=== PATIENT | female | born 1975 | race Hispanic/Latino ===

== ENCOUNTER 2021-04-22 15:51 | Outpatient (CLI) | payer OTHER, SELFPAY ==
--- NOTE | ~2021-04-22 | MM_ITS ---
EXAMINATION: MM screening avila BI w christianne HISTORY: Screening mammogram TECHNIQUE: Craniocaudal and mediolateral oblique 3-D tomosynthesis images were obtained and synthetic 2-D images were generated. CAD analysis was submitted and interpreted. COMPARISON: No prior mammogram is available for comparison at this institution. BREAST PARENCHYMAL COMPOSITION: The breasts are heterogeneously dense, which may obscure small masses . FINDINGS: Bilateral breast masses are suggested. Question of architectural distortion of the right. B ilateral diagnostic mammography and bilateral breast ultrasound examination are recommended. IMPRESSION: 1. Bilateral breast masses and question of architectural distortion on the right 2. Bilateral diagnostic mammography and bilateral breast ultrasound examination are recommended. BI-RADS Category 0: Incomplete: Needs additional imaging evaluation. Reviewed, dictated and finalized at location A. IMPRESSION: 1. Bilateral breast masses and question of architectural distortion on the righ t 2. Bilateral diagnostic mammography and bilateral breast ultrasound examination are recommended. BI-RADS Category 0: Incomplete: Needs additional imaging evaluation.
== END 2021-04-22 15:52 | disposition home or self-care (01) ==
LOC: ANHIMG 15:53
PROVIDERS: PCP Obstetrics & Gynecology; Visit Provider Obstetrics & Gynecology
DX: Z12.31 Encounter for screening mammogram for malignant neoplasm of breast (principal); R92.8 Other abnormal and inconclusive findings on diagnostic imaging of breast
CPT/HCPCS: 77063; 77067

== ENCOUNTER 2023-12-10 11:21 | Emergency (ER) | payer OTHER, SELFPAY ==
--- NOTE | 2023-12-10 11:28 | ED.GENADULT ---
HPI - General Adult General Chief complaint: Unspecified Stated complaint: Burning/Numbness Hands/Arms/Feet Time Seen by Provider: 12/10/23 11:37 History of Present Illness HPI narrative: 48-year-old female presents to [facility] for complaint of bilateral hand numbness and tingling as well as bilateral numbness and tingling to feet for the past 3 months. Patient endorses that she has not seen her primary care in over 1.5 years. Patient denies chest pain, shortness of breath. Related Data Home Medications Medication Instructions Recorded Confirmed No Home Medications 12/10/23 12/10/23 Allergies Allergy/AdvReac Type Severity Reaction Status Date / Time No Known Allergies Allergy Verified 12/10/23 11:38 [facility] Family History Family History (Updated 09/02/12 @ 08:09 by DOCTOR UNKNOWN) Other Asthma Family history of migraine headaches Social History Social History Smoking status: Never smoker Second hand tobacco smoke exposure: No Alcohol intake: never Course Course Level of Care: Express Care Visit Vital Signs Vital signs: Vital Signs Temperature 36.9 C 12/10/23 11:30 Pulse Rate 91 12/10/23 11:30 Respiratory Rate 18 12/10/23 11:30 Blood Pressure 121/96 H 12/10/23 11:30 Pulse Oximetry 100 12/10/23 11:30 Oxygen Delivery Room Air 12/10/23 11:30 Temperature 36.9 C 12/10/23 11:30 Pulse Rate 91 12/10/23 11:30 Respiratory Rate 18 12/10/23 11:30 Blood Pressure 121/96 H 12/10/23 11:30 Pulse Oximetry 100 12/10/23 11:30 Oxygen Delivery Room Air 12/10/23 11:30 Medical Decision Making [facility] Narrative Medical decision making narrative: 48-year-old female presents to [facility] for complaint of bilateral hand numbness and tingling as well as bilateral numbness and tingling to feet for the past 3 months. Patient endorses that she has not seen her primary care in over 1.5 years. Patient denies chest pain, shortness of breath Exam unremarkable. No edema or discoloration to extremities noted. patient advised it is important for her to schedule with a primary care provider. Patient given list of primary care provider resources in the area. patient verbalized understanding Patient is sitting comfortably in exam room nontoxic in appearance. Patient appropriate for outpatient treatment and follow-up. Discharge instructions reviewed with patient, as well as provided in writing per nursing staff. The instructions also include specific and strict return/GO TO THE ER as well as f/u information. All questions have been answered, and the patient deny any further questions with discharge and discharge plan. Some parts of this dictation were generated by voice recognition software and may contain typographical and/or grammatical inaccuracies. Differential Diagnosis Differential Diagnosis: hand pain, foot pain, electrolyte deficiency, Raynaud syndrome Vital Signs Vital Signs: Vital Signs Temperature 36.9 C 12/10/23 11:30 Pulse Rate 91 12/10/23 11:30 Respiratory Rate 18 12/10/23 11:30 Blood Pressure 121/96 H 12/10/23 11:30 Pulse Oximetry 100 12/10/23 11:30 Oxygen Delivery Room Air 12/10/23 11:30 Temperature 36.9 C 12/10/23 11:30 Pulse Rate 91 12/10/23 11:30 Respiratory Rate 18 12/10/23 11:30 Blood Pressure 121/96 H 12/10/23 11:30 Pulse Oximetry 100 12/10/23 11:30 Oxygen Delivery Room Air 12/10/23 11:30 Discharge Plan Discharge Clinical Impression: Hand and foot pain Qualifiers: Laterality: unspecified laterality Qualified Code(s): M79.643 - Pain in unspecified hand Patient Disposition: Home, Self-Care Condition: Stable Instructions: Low-Sodium Diet (ED) Patient Language: Swiss Prescriptions: No Action No Home Medications Follow-up/Referrals: PHYSICIAN,PARTS INTERPRETER [Primary Care Provider] - Stand Alone Forms: Work/School Release IP Time of Disposition: 11:51
[2023-12-10 11:30] VITALS: BP 121/96; PULSE 91; RESP 18; TEMP 36.9; O2SAT 100
== END 2023-12-10 11:57 | disposition home or self-care (01) ==
PROVIDERS: Emergency Provider Nurse Practitioner Family
DX: M79.642 Pain in left hand (principal); M79.641 Pain in right hand; M79.672 Pain in left foot; M79.671 Pain in right foot
CPT/HCPCS: 99212; G0463

== ENCOUNTER 2024-12-05 10:29 | Emergency (ER) | payer OTHER, SELFPAY ==
[2024-12-05 10:33] VITALS: BP 146/76; PULSE 92; RESP 20; TEMP 36.5; O2SAT 100
[2024-12-05 11:26] VITALS: BP 139/89; PULSE 88; RESP 15; O2SAT 100
--- NOTE | 2024-12-05 11:54 | ED.SKABFB ---
HPI - Skin/Abscess/Foreign Bdy General Chief complaint: Skin/Abscess/Foreign Body Stated complaint: URI, rash Time Seen by Provider: 12/05/24 11:53 History of Present Illness HPI narrative: Pt presents with vescicular rash to back of neck and face for 5 days. Pt states it is not painful and denies any allergic exposure ans lesions do not itch. Pt denies visual symptoms. Related Data Home Medications ?Medication ?Instructions ?Recorded ?Confirmed ?Last Taken ?Type No Home Medications 12/10/23 12/10/23 Unknown History Allergies Allergy/AdvReac Type Severity Reaction Status Date / Time No Known Allergies Allergy Verified 12/05/24 11:19 Review of Systems Review of Systems: All systems reviewed & are unremarkable except as noted in HPI and below PMFSH Family History Family History (Updated 09/02/12 @ 08:09 by DOCTOR UNKNOWN) Other Asthma Family history of migraine headaches Social History Social History Smoking status: Never smoker Second hand tobacco smoke exposure: No Alcohol intake: never Exam Const: General: healthy appearing and no acute distress Nutritional Appearance: well nourished Orientation/consciousness: patient oriented x3 Limitations: no limitations Eyes: Conjunctivae: conjunctivae normal Pupils: Equal, round and reactive pupils present EOM: EOMs intact bilaterally Direct Ophthalmoscopy: no photophobia Other: alcaine applied and fluoresceine applied to left eye. Viewed under wood's lamp, no dendridick lesion or FB noted or area of increased uptake. Neck: Neck: no lymphadenopathy Resp: Effort & Inspection: normal respiratory effort Auscultation: clear to auscultation bilaterally Cardio: Rate: regular rate Rhythm: regular rhythm GI: Auscultation: normal bowel sounds Back/Spine/Pelvis: Back: no CVA tenderness Skin: Other: erythematous vescicular lesions to right neck right lower face and left eyebrow Neuro: General: patient oriented x3, moves all extremities, no meningeal signs, no focal motor deficits and CN's II-XI intact bilaterally Cranial nerves: Yes Nystagmus not present Speech: normal speech Extrem: General: normal to inspection and no clubbing, cyanosis or edema Psych: Mental Status: mental status grossly normal Affect: normal affect Attitude: cooperative Course Vital Signs Vital signs: Vital Signs Temperature 97.7 F 12/05/24 10:33 Pulse Rate 92 12/05/24 10:33 Respiratory Rate 20 12/05/24 10:33 Blood Pressure 146/76 H 12/05/24 10:33 Pulse Oximetry 100 12/05/24 10:33 Oxygen Delivery Room Air 12/05/24 10:33 Temperature 97.7 F 12/05/24 12:53 Pulse Rate 79 12/05/24 12:53 Respiratory Rate 14 12/05/24 12:53 Blood Pressure 117/81 12/05/24 12:53 Pulse Oximetry 99 12/05/24 12:53 Oxygen Delivery Room Air 12/05/24 10:33 MDM - Skin/Abscess/Foreign Bdy MDM Narrative Medical decision making narrative: Pt has vescicular lesion but crossing midline so doubt shingles will treat with antibiotics both topical and oral and to be safe Discharge Plan Discharge Clinical Impression: Impetigo Patient Disposition: Home, Self-Care Condition: Stable Instructions: Antibiotic Form, Impetigo (ED) Patient Language: Scottish Prescriptions: New erythromycin 333 mg tablet,delayed release (DR/EC) 333 mg PO Q8H Qty: 30 0RF valacyclovir 500 mg tablet 500 mg PO Q12H Qty: 14 0RF mupirocin [Centany] 2 % ointment 1 applic topical BID Qty: 15 0RF No Action No Home Medications Follow-up/Referrals: PHYSICIAN,ROOM SERVICE WAITER/WAITRESS [Primary Care Provider] -
--- OUTSIDE RECORDS SUMMARY | 2024-12-05 12:17 | XMS_ITS | Referral Summary ---
Author Organization [facility] [employer] Address [address] [place] [address] Care Team Providers Care Steerer Name Role Phone To Evans MD Primary Care Provider [phone] Source Comments [facility] [employer],non-owned Affiliates and Associated Physician Practices is amultiple site organization consisting of ambulatory clinics and hospital sitesin [place], [place], [place] and [place]. This disclosure is being madepursuant to the Care Everywhere program and may not contain all information available regarding this patient. Last updated 18.[employer] Allergies No known active allergies Medications * Be aware that medications may not be up to date on this document. Alwaysverify current medications with the patient. Medication Sig Dispensed Refills Start Date End Date Status Levothyroxine Sodium (SYNTHROID PO) Active Social History Tobacco Use Types Packs/Day Years Used Date Smoking Tobacco: Never Smokeless Tobacco: Never Sex and Gender Information Value Date Recorded Sex Assigned at Not on file Gender Identity Not on file Sexual Orientation Not on file Last Filed Vital Signs Vital Sign Reading Time Taken Comments Blood Pressure 136/82 10/22/2019 3:02 PM TRACER POWDER BLENDER Pulse 87 10/22/2019 3:02 PM TRACER POWDER BLENDER Temperature 36.9 C (98.5 F) 10/22/2019 3:02 PM TRACER POWDER BLENDER Respiratory Rate 16 10/22/2019 3:02 PM TRACER POWDER BLENDER Oxygen Saturation 98% 10/22/2019 3:02 PM TRACER POWDER BLENDER Inhaled Oxygen Concentration - - Weight 83 kg (183 lb) 10/22/2019 3:02 PM TRACER POWDER BLENDER Height 172.7 cm (5' 8 ) 10/22/2019 3:02 PM TRACER POWDER BLENDER Body Mass Index 27.83 10/22/2019 3:02 PM TRACER POWDER BLENDER Plan of Treatment Not on file Care Teams Steerer Relationship Specialty Start Date End Date To Evans MD [address] [address] PCP - General Internal Medicine 10/22/17
--- OUTSIDE RECORDS SUMMARY | 2024-12-05 12:17 | XMS_ITS | Clinical Summary ---
Author Organization [facility] Address [address] [place] [id number] Care Team Providers Care Developer Programmer Analyst Name Role Phone Unavailable Primary Care Provider Unavailabl e Social History Tobacco Use Types Packs/Day Years Used Date Smoking Tobacco: Never Assessed Comments Unknown Sex and Gender Information Value Date Recorded Sex Assigned at Not on file Legal Sex Female 5:37 PM CDT Gender Identity Not on file Sexual Orientation Not on file Plan of Treatment Health Maintenance Due Date Last Done Comments Cervical Cancer Screening Pa p Smear (Age 30 to 64) Every 3 Years 1974 Colorectal Cancer Screening Colonoscopy (10 Years) 1974 Annual Physical 1977 Hepatitis C 1992 DTaP, Tdap and Td Vaccines ( 1 - Tdap) 1993 Hepatitis B Vaccines (1 of 3 - 19+ 3-dose series) 1993 Cervical Cancer Screening Pa p with HPV Testing (Age 30 to 64) Every 5 Years 2004 Cervical Cancer Screening with HPV 2004 Mammogram Screening 2014 Zoster Vaccines (1 of 2) 2024 COVID-19 Vaccine ( - 2023-2 5 season) 2024 Influenza Adult (#1) 2024 Meningococcal B Vaccine Aged Out No l onger eligible based on patient's age to complete this topic Meningococcal Vaccine Aged Out No nabeel [place] eligible based on patient's age to complete this topic Pneumococcal Vaccine: Pediat rics (0 to 5 Years) and At-Risk Patients (6 to 64 Years) Aged Out No longer eligible b ased on patient's age to complete this topic RSV Immunizations Under 20 Months Aged Out No longer eligible based on patient's age to complete this topic
--- OUTSIDE RECORDS SUMMARY | 2024-12-05 12:17 | XMS_ITS | Clinical Summary ---
Author Organization [facility] [employer] Address [address] [place] [address] Care Team Providers Care Child Life Assistant Name Role Phone To Evans MD Primary Care Provider [phone] Source Comments [facility] [employer],non-owned Affiliates and Associated Physician Practices is amultiple site organization consisting of ambulatory clinics and hospital sitesin [place], [place], [place] and [place]. This disclosure is being madepursuant to the Care Everywhere program and may not contain all information available regarding this patient. Last updated 18.[employer] Allergies No known active allergies Medications * [...] Comments Blood Pressure 136/82 10/22/2019 3:02 PM RELISH MAKER Pulse 87 10/22/2019 3:02 PM RELISH MAKER Temperature 36.9 C (98.5 F) 10/22/2019 3:02 PM RELISH MAKER Respiratory Rate 16 10/22/2019 3:02 PM RELISH MAKER Oxygen Saturation 98% 10/22/2019 3:02 PM RELISH MAKER Inhaled Oxygen Concentration - - Weight 83 kg (183 lb) 10/22/2019 3:02 PM RELISH MAKER Height 172.7 cm (5' 8 ) 10/22/2019 3:02 PM RELISH MAKER Body Mass Index 27.83 10/22/2019 3:02 PM RELISH MAKER Plan of Treatment Health Maintenance Due Date Last Done Comments COLOGUARD (AGES 45-75) - COL ON CA SCREENING 1974 COLON MONITORING 1974 COLONOSCOPY - COLON CA SCREENING 1974 CT COLONOGRAPHY - COLON CA SCREENING 1974 Colorectal Cancer Screening 1974 FIT - COLON CA SCREENING 1974 FLEX SIG - COLON CA SCREENING 1974 LIPID TESTING 1974 MAMMOGRAM 1974 PAP SMEAR 1974 HIV SCREENING 1989 HEPATITIS C SCREENING 03/21/1992 DTAP/TDAP/TD VACCINES (1 - Tdap) 1993 HEPATITIS B VACCINE (1 of 3 - 19+ 3-dose series) 1993 SCREENING FOR DIABETES 10/22/2019 PNEUMOCOCCAL VACCINE 50+ (1 of 1 - PCV) 2024 ZOSTER VACCINE (1 of 2) 2024 COVID-19 VACCINE (1 - 2023-2 5 season) 2024 INFLUENZA VACCINE (#1) 2024 DEPRESSION SCREENING 09/28/2024 HIB VACCINE Aged Out No longer eligi ble based on patient's age to complete this topic HPV VACCINE Aged Out No longer eligi ble based on patient's age to complete this topic MENINGOCOCCAL (Group B) VACCINE Aged Out No longer eligible based on patient's age to complete this topic MENINGOCOCCAL VACCINE Aged Out No nabeel [place] eligible based on patient's age to complete this topic PNEUMOCOCCAL VACCINE Aged Out No long er eligible based on patient's age to complete this topic Care Teams Child Life Assistant Relationship Specialty Start Date End Date To Evans MD [address] [address] PCP - General Internal Medicine 10/22/17
--- OUTSIDE RECORDS SUMMARY | 2024-12-05 12:17 | XMS_ITS | Patient Health Summary ---
Author Organization [facility] Address [address] [facility] [place] [address] Care Team Providers Care Stereo Equipment Repairer Name Role Phone To Evans MD Primary Care Provider Note from [facility],non-owned Affiliates and Associated Physician Practices is amultiple site organization consisting of ambulatory clinics and hospital sitesin [place], [place], [place] and [place]. This disclosure is being madepursuant to the Care Everywhere program and may not contain all information available regarding this patient. Last updated 18.[facility] [employer] Allergies No known active allergies Medications * Be aware that medications may not be up to date on this document. Alwaysverify current medications with the patient. * Levothyroxine Sodium (SYNTHROID PO) Social History Tobacco Use Types Packs/Day Years Used Date Smoking Tobacco: Never Smokeless Tobacco: Never Sex and Gender Information Value Date Recorded Sex Assigned at Not on file Gender Identity Not on file Sexual Orientation Not on file Last Filed Vital Signs Vital Sign Reading Time Taken Comments Blood Pressure 136/82 10/22/2019 3:02 PM STAFF APPRAISER Pulse 87 10/22/2019 3:02 PM STAFF APPRAISER Temperature 36.9 C (98.5 F) 10/22/2019 3:02 PM STAFF APPRAISER Respiratory Rate 16 10/22/2019 3:02 PM STAFF APPRAISER Oxygen Saturation 98% 10/22/2019 3:02 PM STAFF APPRAISER Inhaled Oxygen Concentration - - Weight 83 kg (183 lb) 10/22/2019 3:02 PM STAFF APPRAISER Height 172.7 cm (5' 8 ) 10/22/2019 3:02 PM STAFF APPRAISER Body Mass Index 27.83 10/22/2019 3:02 PM STAFF APPRAISER Procedures * URINALYSIS AUTO - POINT OF CARE (AMB) STL(Performed 10/22/2019) Performed for Acute cystitis with hematuria * CULTURE URINE(Performed 10/22/2019) Performed for Acute cystitis with hematuria Results * (ABNORMAL) URINALYSIS AUTO - POINT OF CARE (AMB) STL (10/22/2019 3:14 PM STAFF APPRAISER) Clarity UA POCT cloudy Color UA POCT yellow Leukocyte UA 70 Negative Nitrite UA POCT negative Negative Urobilinogen UA 0.2 0.1 - 1.0 Protein UA POCT 30+ Negative pH UA 5.0 5.0 - 8.0 pH units Blood UA 3+ Negative Specific [place] UA POCT 1.025 1.002 - 1.030 Ketone UA 0.5 Negative Bilirubin UA POCT negative Negative Glucose UA negative Negative Expiration Date [id number] Lot # [id number] QC Verified Yes Yes Urine URINE / Unknown 10/22/2019 3 :14 PM STAFF APPRAISER [employer] Dickey APRN-ASSISTANT HOUSEKEEPING MANAGER LAB - POINT OF CA RE ORDERABLES * (ABNORMAL) CULTURE URINE (10/22/2019 3:09 PM STAFF APPRAISER) Urine Culture Routine Final report(A) [facility] ACCOUNT BILL Result 1 Enterococcus faecalis(A) [facility] ACCOUNT BILL Comment: 25,000-50,000 colony forming units per mL Note: this isolate is vancomycin-susceptible. This information is provided for epidemiologic purposes only: vancomycin is not among the antibiotics recommended for therapy of urinary tract infections caused by Enterococcus. For Enterococcus species, aminoglycosides (except for high-level resistance screening), cephalosporins, clindamycin, and trimethoprim-sulfamethoxazole are not effective clinically. (CLSI, [id number], 2016) Antimicrobial Susceptibility [facility] ACCOUNT BILL Comment: S = Susceptible; I = Intermediate; R = Resistant P = Positive; N = Negative MICS are expressed in micrograms per mL Antibiotic RSLT#1 RSLT#2 RSLT#3 RSLT#4 Ciprofloxacin S Levofloxacin S Nitrofurantoin S Penicillin S Tetracycline R Vancomycin S Urine URINE SPECIMEN OBTAINED BY CLEAN CATCH PROCEDURE / Unknown 10/22/2019 3:09 PM STAFF APPRAISER 10/24/2019 Narrative Resulting Agency Comment Lab Testing performed at: [facility] [place] [address] [id number] Alexus [facility] LAB - MICROBIOLOG Y ORDERABLES [facility] ACCOUNT BILL [address] [place] [address] Care Teams Stereo Equipment Repairer Relationship Specialty Start Date End Date To Evans MD [address] [place] [address] PCP - General Internal Medicine 10/22/17
[2024-12-05 12:53] VITALS: BP 117/81; PULSE 79; RESP 14; TEMP 36.5; O2SAT 99
--- OUTSIDE RECORDS SUMMARY | 2024-12-05 13:58 | XMS_ITS | Referral Summary ---
Author Organization [facility] [employer] Address [address] [place] [address] Care Team Providers Care Switch Operators Supervisor Name Role Phone To Evans MD Primary Care Provider [phone] Source Comments [facility] [employer],non-owned Affiliates and Associated Physician Practices is amultiple site organization consisting of ambulatory clinics and hospital sitesin [place], [place], [place] and [place]. This disclosure is being madepursuant to the Care Everywhere program and may not contain all information available regarding this patient. Last updated 18.[employer] Allergies No known active allergies Medications * [...] Comments Blood Pressure 136/82 10/22/2019 3:02 PM ARMY MANAGER Pulse 87 10/22/2019 3:02 PM ARMY MANAGER Temperature 36.9 C (98.5 F) 10/22/2019 3:02 PM ARMY MANAGER Respiratory Rate 16 10/22/2019 3:02 PM ARMY MANAGER Oxygen Saturation 98% 10/22/2019 3:02 PM ARMY MANAGER Inhaled Oxygen Concentration - - Weight 83 kg (183 lb) 10/22/2019 3:02 PM ARMY MANAGER Height 172.7 cm (5' 8 ) 10/22/2019 3:02 PM ARMY MANAGER Body Mass Index 27.83 10/22/2019 3:02 PM ARMY MANAGER Plan of Treatment Not on file Care Teams Switch Operators Supervisor Relationship Specialty Start Date End Date To Evans MD [address] [address] PCP - General Internal Medicine 10/22/17
--- OUTSIDE RECORDS SUMMARY | 2024-12-05 13:58 | XMS_ITS | Clinical Summary ---
Author Organization [facility] [employer] Address [address] [place] [address] Care Team Providers Care Flexographic Printing Machinist Name Role Phone To Evans MD Primary Care Provider [phone] Source Comments [facility] [employer],non-owned Affiliates and Associated Physician Practices is amultiple site organization consisting of ambulatory clinics and hospital sitesin [place], [place], [place] and [place]. This disclosure is being madepursuant to the Care Everywhere program and may not contain all information available regarding this patient. Last updated 18.[employer] Allergies No known active allergies Medications * [...] Comments Blood Pressure 136/82 10/22/2019 3:02 PM COTTON AGENT Pulse 87 10/22/2019 3:02 PM COTTON AGENT Temperature 36.9 C (98.5 F) 10/22/2019 3:02 PM COTTON AGENT Respiratory Rate 16 10/22/2019 3:02 PM COTTON AGENT Oxygen Saturation 98% 10/22/2019 3:02 PM COTTON AGENT Inhaled Oxygen Concentration - - Weight 83 kg (183 lb) 10/22/2019 3:02 PM COTTON AGENT Height 172.7 cm (5' 8 ) 10/22/2019 3:02 PM COTTON AGENT Body Mass Index 27.83 10/22/2019 3:02 PM COTTON AGENT Plan of Treatment Health Maintenance Due Date [...] age to complete this topic Care Teams Flexographic Printing Machinist Relationship Specialty Start Date End Date To Evans MD [address] [address] PCP - General Internal Medicine 10/22/17
--- OUTSIDE RECORDS SUMMARY | 2024-12-05 13:58 | XMS_ITS | Patient Health Summary ---
Author Organization [facility] Address [address] [place] [address] Care Team Providers Care Cnc Machine Programmer Name Role Phone To Evans MD Primary Care Provider [phone] Note from [facility],non-owned Affiliates and Associated Physician Practices is amultiple site organization consisting of ambulatory clinics and hospital sitesin [place], [place], [place] and [place]. This disclosure is being madepursuant to the Care Everywhere program and may not contain all information available regarding this patient. Last updated 18.[facility] [employer] Allergies No known active allergies Medications * [...] Comments Blood Pressure 136/82 10/22/2019 3:02 PM [employer] Pulse 87 10/22/2019 3:02 PM [employer] Temperature 36.9 C (98.5 F) 10/22/2019 3:02 PM [employer] Respiratory Rate 16 10/22/2019 3:02 PM [employer] Oxygen Saturation 98% 10/22/2019 3:02 PM [employer] Inhaled Oxygen Concentration - - Weight 83 kg (183 lb) 10/22/2019 3:02 PM [employer] Height 172.7 cm (5' 8 ) 10/22/2019 3:02 PM [employer] Body Mass Index 27.83 10/22/2019 3:02 PM [employer] Procedures * URINALYSIS AUTO - POINT OF CARE (AMB) STL(Performed 10/22/2019) Performed for Acute cystitis with hematuria * CULTURE URINE(Performed 10/22/2019) Performed for Acute cystitis with hematuria Results * (ABNORMAL) URINALYSIS AUTO - POINT OF CARE (AMB) STL (10/22/2019 3:14 PM [employer]) Clarity UA POCT cloudy Color UA POCT yellow Leukocyte UA 70 Negative Nitrite UA POCT negative Negative Urobilinogen UA 0.2 0.1 - 1.0 Protein UA POCT 30+ Negative pH UA 5.0 5.0 - 8.0 pH units Blood UA 3+ Negative Specific [place] UA POCT 1.025 1.002 - 1.030 Ketone UA 0.5 Negative Bilirubin UA POCT negative Negative Glucose UA negative Negative Expiration Date [id number] Lot # [id number] QC Verified Yes Yes Urine URINE / Unknown 10/22/2019 3 :14 PM [employer] Alexus Dickey APRN-JUNIOR ASSISTANT MANAGER LAB - POINT OF CA RE ORDERABLES * (ABNORMAL) CULTURE URINE (10/22/2019 3:09 PM [employer]) Urine Culture Routine Final report(A) [facility] ACCOUNT [...] and trimethoprim-sulfamethoxazole are not effective clinically. (CLSI, [id number], 2016) Antimicrobial Susceptibility [facility] ACCOUNT BILL Comment: S = Susceptible; I = Intermediate; R = Resistant P = Positive; N = Negative MICS are expressed in micrograms per mL Antibiotic RSLT#1 RSLT#2 RSLT#3 RSLT#4 Ciprofloxacin S Levofloxacin S Nitrofurantoin S Penicillin S Tetracycline R Vancomycin S Urine URINE SPECIMEN OBTAINED BY CLEAN CATCH PROCEDURE / Unknown 10/22/2019 3:09 PM [employer] 10/24/2019 Narrative Resulting Agency Comment Lab Testing performed at: [facility] [place] [address] [id number] Alexus DE [facility] - MICROBIOLOG Y ORDERABLES [facility] ACCOUNT BILL [address] [place] [address] Care Teams Cnc Machine Programmer Relationship Specialty Start Date End Date To Evans MD [address] [place] [address] PCP - General Internal Medicine 10/22/17
--- OUTSIDE RECORDS SUMMARY | 2024-12-05 13:58 | XMS_ITS | Clinical Summary ---
Author Organization [facility] Address [address] [place] [id number] Care Team Providers Care Garment Tag Stringer Name Role Phone Unavailable Primary Care Provider [...]
== END 2024-12-05 12:55 | disposition home or self-care (01) ==
PROVIDERS: Emergency Provider Emergency Medicine
DX: L01.00 Impetigo, unspecified (principal)
CPT/HCPCS: 99283